=== PATIENT | male | born 1970 | race Caucasian/White ===

== ENCOUNTER 2017-05-11 15:26 | Emergency (ER) | payer OTHER ==
[2017-05-11 16:25] VITALS: BP 119/74
--- NOTE | 2017-05-11 18:21 | UC ---
UC General HPI - HPI Summary HPI Summary: TWO WEEKS OF SORE THROAT, FEVER, CHILLS. LOOSE STOOL. HAS TAKEN ONLY TYLENOL AND IBUPROFEN. SYMPTOMS CONTINUE. NO ABDOMINAL PAIN. NO RASHES. NO RECENT TRAVEL. - History of Current Complaint Chief Complaint: UCGeneralIllness Stated Complaint: DIARRHEA,CONGESTION Time Seen by Provider: 05/11/17 17:20 Hx Obtained From: Patient Onset/Duration: Gradual Onset, Lasting Weeks, Still Present Timing: Intermittent Episodes Lasting: Onset Severity: Mild Current Severity: Moderate Associated Signs & Symptoms: Positive: Diarrhea, Fever - Allergy/Home Medications Allergies/Adverse Reactions: Allergies Allergy/AdvReac Type Severity Reaction Status Date / Time No Known Allergies Allergy Verified 05/11/17 16:25 Home Medications: Home Medications Allopurinol TAB* [Zyloprim 100 MG TAB*] 200 mg PO DAILY 05/11/17 [History Confirmed 05/11/17] Lisinopril [Lisinopril 2.5 MG-] 2.5 mg PO DAILY 05/11/17 [History Confirmed ] Testosterone Cypionate [Depo-Testosterone] 200 mg IM 05/11/17 [History] PMH/Surg Hx/FS Hx/Imm Hx Previously Healthy: Yes - Surgical History Surgical History: None - Family History Known Family History: Negative: Diabetes - Social History Occupation: Employed Full-time Lives: With Family Alcohol Use: Weekly Substance Use Type: None Smoking Status (MU): Never Smoked Tobacco Review of Systems Constitutional: Fever, Chills, Fatigue Skin: Negative Eyes: Negative ENT: Sore Throat Respiratory: Negative Cardiovascular: Negative Gastrointestinal: Diarrhea Genitourinary: Negative Motor: Negative Neurovascular: Negative Musculoskeletal: Negative Neurological: Negative Psychological: Negative All Other Systems Reviewed And Are Negative: Yes Physical Exam Triage Information Reviewed: Yes Appearance: Well-Appearing, No Pain Distress, Well-Nourished Vital Signs: Initial Vital Signs Temp 98.3 F 05/11/17 16:21 Pulse 97 05/11/17 16:21 Resp 18 05/11/17 16:21 BP 119/74 05/11/17 16:21 Pulse Ox 98 05/11/17 16:21 Vital Signs Reviewed: Yes Eye Exam: Normal ENT: Positive: Pharynx normal, Pharyngeal erythema, TMs normal Dental Exam: Normal Neck exam: Normal Neck: Positive: Supple, Nontender, No Lymphadenopathy Respiratory Exam: Normal Respiratory: Positive: Chest non-tender, Lungs clear, Normal breath sounds, No respiratory distress, No accessory muscle use Cardiovascular Exam: Normal Cardiovascular: Positive: RRR, No Murmur Abdominal Exam: Normal Abdomen Description: Positive: Nontender, No Organomegaly, Soft Musculoskeletal Exam: Normal Neurological Exam: Normal Psychological Exam: Normal Skin Exam: Normal Course/Dx - Differential Dx - Multi-Symptom Differential Diagnoses: Metabolic Abnormality, Other - MONO; STREP; VIRAL SYNDROME Provider Diagnoses: TONSILLITIS; GASTROENTERITIS Discharge - Discharge Plan Condition: Stable Disposition: HOME Patient Education Materials: Acute Diarrhea (ED), Tonsillitis (ED), Viral Syndrome (ED) Forms: *School Release Referrals: Larry Brody MD [Primary Care Provider] - Additional Instructions: CLEAR LIQUIDS FOR 24 HOURS, THEN PROCEED TO BANANAS, RICE, APPLE SAUCE, TOAST UNTIL SYMPTOMS RESOLVE. MAINTAIN GOOD HYDRATION.
[2017-05-12 11:06] LABS: Hematocrit 52 % (42-52); Hemoglobin 17.5 g/dl (14.0-18.0); Mean Corpuscular HGB Conc 34 g/dl (31-36); Mean Corpuscular Hemoglobin 30 pg (27-31); Mean Corpuscular Volume 89 fL (80-94); Mean Platelet Volume 11 um3 (7.4-10.4); Red Blood Count 5.78 10^6/ul (4.0-5.4); Red Cell Distribution Width 13 % (10.5-15); White Blood Count 6.6 10^3/ul (3.5-10.8)
[2017-05-12 11:11] LABS: Mono Internal Control QC Line Present
[2017-05-12 11:12] LABS: Manual Entry Verification GRE0060
[2017-05-12 11:14] LABS: Comments Flag Yes
[2017-05-12 11:15] LABS: Add Diff/Slide Review? Slide Review Added
== END 2017-05-11 18:27 | disposition home or self-care (01) ==
LOC: UCEAST 15:26
DX: J03.90 Acute tonsillitis, unspecified (principal); K52.9 Noninfective gastroenteritis and colitis, unspecified
CPT/HCPCS: 36415; 85025; 86308; 87651; 99211; G0463

== ENCOUNTER 2019-02-03 12:50 | Emergency (ER) | payer OTHER ==
[2019-02-03 16:09] LABS: Hematocrit 47 % (36-46); Hemoglobin 16.3 g/dL (14.0-18.0); Mean Corpuscular HGB Conc 35 g/dL (31-36); Mean Corpuscular Hemoglobin 31 pg (27-31); Mean Corpuscular Volume 90 fL (80-94); Mean Platelet Volume 9.6 fL (7.4-10.4); Platelet Count 215 10^3/uL (150-450); Red Blood Count 5.19 10^6 /uL (4.18-5.48); Red Cell Distribution Width 13 % (10.5-15); White Blood Count 5.4 10^3/uL (3.5-10.8)
[2019-02-03 16:28] LABS: Albumin 4.8 g/dL (3.2-5.2); Albumin/Globulin Ratio 1.8 (1-3); BUN/Creatinine Ratio 8.3 (8-20); C Reactive Protein 3.1 mg/L (<8.01); Calcium 9.7 mg/dL (8.6-10.3); EGFR African American 100.7 (>60); EGFR Non-African American 83.3 (>60); Globulin 2.6 g/dL (2-4); Potassium 3.8 mmol/L (3.5-5.0); Total Bilirubin 0.7 mg/dL (0.2-1.0); Total Protein 7.4 g/dL (6.4-8.9)
[2019-02-03 16:37] LABS: ABS Basophils 0.1 10^3/ul (0-0.2); ABS Eosinophils 0 10^3/ul (0-0.6); ABS Lymphocytes 1.7 10^3/ul (1.0-4.8); ABS Monocytes 0.5 10^3/ul (0-0.8); ABS Neutrophils 3.1 10^3/ul (1.5-7.7); ABS Nucleated RBC 0 10^3/ul; Eosinophil % 0.8 %; Lymphocyte % 31.1 %; Nucleated Red Blood Cells % 0
[2019-02-03] MEDS ORDERED: Iohexol 300* (CONTRAST) 10 ML SDV IV ONE (17:22)
--- NOTE | 2019-02-03 17:24 | ED ---
Abdominal Pain/Male - HPI Summary HPI Summary: The patient is a 48 y/o M presenting to [facility] with a chief complaint of sudden onset but dull LLQ abd pain that radiates to the bilateral low back, groin, and testicles starting today while he was at work. He states that the pain is aggravated by standing up and alleviated by lying down. The pain is currently rated 3/10 in severity. He denies urinary changes. He has hx of HTN and gout. No hx of renal calculi. Surgical hx of hernia repair. Occasional EtOH, no smoking, no other substances. No FHx. - History of Current Complaint Chief Complaint: EDAbdPain Stated Complaint: BACK AND LT SIDE PAIN PER PT Time Seen by Provider: 02/03/19 17:12 Hx Obtained From: Patient Onset/Duration: Sudden Onset, Lasting Hours, Still Present Timing: Lasting Hours Severity Initially: Mild Severity Currently: Mild Pain Intensity: 3 Pain Scale Used: 0-10 Numeric Location: Discrete At: LLQ, Groin, Flank - bilateral Radiates: Yes Radiates to: Back - bilateral low, Other - testicles Character: Dull Aggravating Factor(s): Other: - standing up Alleviating Factor(s): Position - lying down Associated Signs And Symptoms: Positive: Back Pain - low back. Negative: Urinary Symptoms - Allergies/Home Medications Allergies/Adverse Reactions: Allergies Allergy/AdvReac Type Severity Reaction Status Date / Time No Known Allergies Allergy Verified 05/11/17 16:25 Home Medications: Home Medications Lisinopril/HCTZ 20/25(NF) [Zestoretic 20/25(NF)] 1 tab PO DAILY 02/03/19 [ History Confirmed 02/03/19] Methylphenidate TAB* [Ritalin TAB*] 10 mg PO DAILY 02/03/19 [History Confirmed 02/03/19] PMH/Surg Hx/FS Hx/Imm Hx Endocrine/Hematology History: Denies: Hx Diabetes Cardiovascular History: Reports: Hx Hypertension - Surgical History Surgery Procedure, Year, and Place: none - Immunization History Immunizations Up to Date: Yes Infectious Disease History: No Infectious Disease History: Denies: Traveled Outside the [place] in Last 30 Days - Family History Known Family History: Negative: Cardiac Disease, Hypertension, Diabetes - Social History Alcohol Use: Weekly Alcohol Amount: 3 - 4 times a week Substance Use Type: Reports: Marijuana Substance Use Comment - Amount & Last Used: daily Smoking Status (MU): Never Smoked Tobacco Review of Systems Positive: Abdominal Pain - LLQ Positive: flank pain - bilateral, pain - groin radiating to testicles. Negative : dysuria Positive: Other - bilateral low back pain All Other Systems Reviewed And Are Negative: Yes Physical Exam - Summary Physical Exam Summary: VITAL SIGNS: Reviewed. GENERAL: Patient is a well-developed and nourished male who is lying comfortable in the stretcher. Patient is not in any acute respiratory distress. HEAD AND FACE: No signs of trauma. No ecchymosis, hematomas or skull depressions. No sinus tenderness. EYES: PERRLA, EOMI x 2, No injected conjunctiva, no nystagmus. EARS: Hearing grossly intact. Ear canals and tympanic membranes are within normal limits. MOUTH: Oropharynx within normal limits. NECK: Supple, trachea is midline, no adenopathy, no JVD, no carotid bruit, no c- spine tenderness, neck with full ROM. CHEST: Symmetric, no tenderness at palpation LUNGS: Clear to auscultation bilaterally. No wheezing or crackles. CVS: Regular rate and rhythm, S1 and S2 present, no murmurs or gallops appreciated. ABDOMEN: Soft, slight LLQ tenderness. No signs of distention. No rebound no guarding, and no masses palpated. Bowel sounds are normal. EXTREMITIES: FROM in all major joints, no edema, no cyanosis or clubbing. NEURO: Alert and oriented x 3. No acute neurological deficits. Speech is normal and follows commands. SKIN: Dry and warm Triage Information Reviewed: Yes Vital Signs On Initial Exam: Initial Vitals Temp Pulse Resp BP Pulse Ox 98.1 F 87 18 134/88 96 02/03/19 13:01 02/03/19 13:01 02/03/19 13:01 02/03/19 13:01 02/03/19 13:01 Vital Signs Reviewed: Yes Diagnostics - Vital Signs Vital Signs Temp Pulse Resp BP Pulse Ox 02/03/19 13:01 98.1 F 87 18 134/88 96 - Laboratory Lab Results: Lab Results 02/03/19 02/03/19 02/03/19 Range/Units 16:00 16:00 16:01 WBC 5.4 (3.5-10.8) 10^3/uL RBC 5.19 (4.18-5.48) 10^6 /uL Hgb 16.3 (14.0-18.0) g/dL Hct 47 H (36-46) % MCV 90 (80-94) fL MCH 31 (27-31) pg MCHC 35 (31-36) g/dL RDW 13 (10.5-15) % Plt Count 215 (150-450) 10^3/uL MPV 9.6 (7.4-10.4) fL Neut % (Auto) 58.1 % Lymph % (Auto) 31.1 % [place] % (Auto) 9.0 % Eos % (Auto) 0.8 % Baso % (Auto) 1.0 % Absolute Neuts (auto) 3.1 (1.5-7.7) 10^3/ul Absolute Lymphs (auto) 1.7 (1.0-4.8) 10^3/ul Absolute Monos (auto) 0.5 (0-0.8) 10^3/ul Absolute Eos (auto) 0 (0-0.6) 10^3/ul Absolute Basos (auto) 0.1 (0-0.2) 10^3/ul Absolute Nucleated RBC 0 10^3/ul Nucleated RBC % 0 Sodium 136 (135-145) mmol/L Potassium 3.8 (3.5-5.0) mmol/L Chloride 99 L (101-111) mmol/L Carbon Dioxide 31 (22-32) mmol/L Anion Gap 6 (2-11) mmol/L BUN 8 (6-24) mg/dL Creatinine 0.96 (0.67-1.17) mg/dL Est GFR ( Amer) 100.7 (>60) Est GFR (Non-Af Amer) 83.3 (>60) BUN/Creatinine Ratio 8.3 (8-20) Glucose 105 H (70-100) mg/dL Lactic Acid 0.9 (0.5-2.0) mmol/L Calcium 9.7 (8.6-10.3) mg/dL Total Bilirubin 0.70 (0.2-1.0) mg/dL AST 23 (13-39) U/L ALT 27 (7-52) U/L Alkaline Phosphatase 58 (34-104) U/L C-Reactive Protein 3.10 (<8.01) mg/L Total Protein 7.4 (6.4-8.9) g/dL Albumin 4.8 (3.2-5.2) g/dL Globulin 2.6 (2-4) g/dL Albumin/Globulin Ratio 1.8 (1-3) Lipase 51 (11.0-82.0) U/L Result Diagrams: 02/03/19 16:01 02/03/19 16:00 Lab Statement: Any lab studies that have been ordered have been reviewed, and results considered in the medical decision making process. - CT Abd/Pel CT CT Interpretation Completed By: Radiologist Summary of CT Findings: 1. There is colonic diverticulosis without evidence for acute diverticulitis. 2. No other acute CT pathology. ED physician has reviewed this report. - Ultrasound No standard instances Ultrasound Interpretation Completed By: Radiologist Summary of Ultrasound Findings: Testicular US: Heterogeneous small bilateral testes however no evidence of torsion is noted. ED physician has reviewed this report. Re-Evaluation - Re-Evaluation First Eval Re-Evaluation Time: 18:10 Change: Improved Comment: Patient states his pain has resovled. We discussed discharge and follow up with PCP. Abdominal Pain Male Course/Dx - Course Assessment/Plan: This patient is a 48-year-old male who presents to the emergency department with a chief complaint of left flank pain, lower back pain since yesterday. Before I saw the patient, they have done at testicular ultrasound which is read as negative for an acute pathology. Blood work without any significant abnormality except for chloride 99, glucose of 105, urinalysis is negative for UTI. Abdominal pelvic CT impression: There is colonic diverticulosis without any evidence of diverticulitis. No other acute CT pathology. In the ED the patient doesnt have any significant pain. The patient reports that pain has resolved. I believe that most of his symptoms are related to lower back pain. Therefore he was recommended to take Ibuprofen for pain. At this point since all the test results are negative the patient will be discharged home with follow-up with PCP. The patient is hemodynamically stable alert oriented 3. - Diagnoses Provider Diagnoses: Flank pain, Back pain Discharge - Sign-Out/Discharge Documenting (check all that apply): Patient Departure - Patient will be discharged home. Patient Received Moderate/Deep Sedation with Procedure: No - Discharge Plan Condition: Stable Disposition: HOME Patient Education Materials: Flank Pain (ED), Back Pain (ED) Referrals: Larry Brody MD [Primary Care Provider] - 3 Days Additional Instructions: FOLLOW UP WITH YOUR PRIMARY CARE PROVIDER WITHIN 2-3 DAYS. RETURN TO THE ED FOR ANY WORSENING OR NEW SYMPTOMS. - Billing Disposition and Condition Condition: STABLE Disposition: Home - Attestation Statements Document Initiated by [email or web address]: Yes Documenting Scribe: Chelsea Estevez Provider For Whom Tash is Documenting (Include Credential): Dr. Nam Dubon MD Scribe Attestation: Chelsea Luo, scrjahed for Dr. Nam Dubon MD on 02/03/19 at 1817. Scribe Documentation Reviewed: Yes Provider Attestation: The documentation as recorded by the Chelsea wayne accurately reflects the service I personally performed and the decisions made by me, Dr. Nam Dubon MD Status of Scribe Document: Ready
[2019-02-03 18:07] LABS: Urine Appearance Clear; Urine Bilirubin Negative (Negative); Urine Blood Negative (Negative); Urine Color Yellow; Urine Glucose Negative (Negative); Urine Ketones Negative (Negative); Urine Nitrite Negative (Negative); Urine Protein Negative (Negative); Urine Specific Gravity 1.011 (1.010-1.030); Urine Urobilinogen Negative (Negative)
[2019-02-03 18:19] VITALS: BP 144/87
== END 2019-02-03 18:17 | disposition home or self-care (01) ==
LOC: ED 12:50
DX: R10.32 Left lower quadrant pain (principal); M54.5 Low back pain
CPT/HCPCS: 36415; 74177; 76870; 80053; 81003; 83605; 83690; 85025; 86140; 99282; Q9967